=== PATIENT | female | born 1985 | race Caucasian/White ===

== ENCOUNTER 2016-10-24 16:44 | Emergency (ER) | payer MEDICAID, OTHER ==
[2016-10-24 16:56] VITALS: BP 105/61; PULSE 61; RESP 20; TEMP 98; O2SAT 98
[2016-10-24 17:29] LABS: RBC URINE 10 /hpf (0-3); URINE BACTERIA RARE (<OCC); URINE BILIRUBIN NEGATIVE (NEGATIVE); URINE BLOOD NEGATIVE (NEGATIVE); URINE COLOR Yellow (YELLOW); URINE GLUCOSE (UA) NORMAL (Normal); URINE KETONE NEGATIVE (NEGATIVE); URINE LEUKOCYTE ESTERASE TRACE Leu/uL (Negative); URINE PROTEIN NEGATIVE (NEGATIVE); URINE UROBILINOGEN NORMAL mg/dL (0.2-1.0); WBC URINE 19 /hpf (0-5)
--- NOTE | 2016-10-24 17:38 | C.PDOC ---
History Of Present Illness 31 y/o female presents to the ED for evaluation of suprapubic pressure and foul smelling urine since this morning after waking up. Also complains of itchy rash to chest and arms, state she has history of eczema and symptoms feel similar. Rash is not contagious, other family members have touched her and do not have similar lesions. Patient denies dysuria/hematuria, vaginal bleeding/discharge, pelvic pain, or fever. Time Seen by Provider: 10/24/16 16:53 Chief Complaint (Nursing): Female Genitourinary History Per: Patient History/Exam Limitations: no limitations Onset/Duration Of Symptoms: Hrs Current Symptoms Are (Timing): Still Present Severity: Mild Quality Of Discomfort: "Pain" Associated Symptoms: Urinary Symptoms (foul smelling urine). denies: Fever, Chills, Nausea, Vomiting, Diarrhea, Loss Of Appetite, Back Pain, Chest Pain, Constipation Alleviating Factors: None Additional History Per: Patient Abnormal Vaginal Bleeding: No Past Medical History Reviewed: Historical Data, Nursing Documentation, Vital Signs Vital Signs: Last Vital Signs Temp 98 F 10/24/16 16:53 Pulse 61 10/24/16 16:53 Resp 20 10/24/16 16:53 BP 105/61 10/24/16 16:53 Pulse Ox 98 10/24/16 18:41 - Medical History PMH: No Chronic Diseases - [facility] Procedures CLOSURE SKIN & SUBCUTANEOUS NEC (03/02/13) TETANUS TOXOID ADMINIST (03/02/13) Family History: States: No Known Family Hx - Social History Hx Tobacco Use: No Hx Alcohol Use: Yes Hx Substance Use: No - Immunization History Hx Tetanus Toxoid Vaccination: Yes (03/02/2013) Hx Influenza Vaccination: No Hx Pneumococcal Vaccination: No Review Of Systems Except As Marked, All Systems Reviewed And Found Negative. Constitutional: Negative for: Fever, Chills Respiratory: Negative for: Shortness of Breath Gastrointestinal: Positive for: Abdominal Pain (suprapubic pressure). Negative for: Nausea, Vomiting, Diarrhea Genitourinary: Positive for: Other (foul smelling urine). Negative for: Dysuria , Hematuria, Vaginal Discharge, Vaginal Bleeding Musculoskeletal: Negative for: Back Pain Skin: Positive for: Rash (rash to chest and arms) Physical Exam - Physical Exam Appears: Well, Non-toxic, No Acute Distress Skin: Warm, Dry, Rash (scattered dry scaly rash with some coin shaped patches on the chest and arms, non-vesicular) Head: Normacephalic Eye(s): bilateral: Normal Inspection Neck: Supple Cardiovascular: Rhythm Regular Respiratory: Normal Breath Sounds, No Rales, No Rhonchi, No Wheezing Gastrointestinal/Abdominal: Normal Exam, Bowel Sounds, Soft, No Tenderness Back: Normal Inspection, No CVA Tenderness Neurological/Psych: Oriented x3 ED Course And Treatment O2 Sat by Pulse Oximetry: 98 (RA) Pulse Ox Interpretation: Normal Progress Note: Urinalysis, Upreg ordered and reviewed. Patient given PO Prednisone and Claritin in ED (suspect nummular eczema). UA shows mild UTI, PO Ciprofloxacin given. Ucx ordered and pending. Rxs given for Prednisone, Claritin, Ciprofloxacin and eczema cream, and patient instructed to follow up with PMD/clinic in 1-2 days. She understands she should return to ED if symptoms worsen. Reevaluation Time: 17:35 Reassessment Condition: Improved Disposition Counseled Patient/Family Regarding: Studies Performed, Diagnosis, Need For Followup, Rx Given - Disposition Referrals: [facility] [Outside] Disposition: HOME/ ROUTINE Disposition Time: 17:35 Condition: STABLE Additional Instructions: FOLLOW UP WITH YOUR DOCTOR IN 1-2 DAYS USE MEDICATIONS DIRECTED RETURN TO ER IF SYMPTOMS WORSEN Prescriptions: Ciprofloxacin [Cipro] 1 tab PO BID #14 tab Colloidal Oatmeal [Eczema] 1 appl TP TID #1 lotion Loratadine [Claritin] 10 mg PO DAILY PRN #15 tab PRN Reason: itching/allergies predniSONE [predniSONE Tab] 40 mg PO DAILY #6 tab Instructions: Urinary Tract Infection in Women (ED), Eczema in Children (ED) Forms: [employer] (Khmer) Print Language: TELUGU - POA Present On Arrival: None - Clinical Impression Clinical Impression: Nummular eczema, UTI (urinary tract infection) - Scribe Statement The provider has reviewed the documentation as recorded by the Luisaibradha Howe All medical record entries made by the Scribe were at my direction and personally dictated by me. I have reviewed the chart and agree that the record accurately reflects my personal performance of the history, physical exam, medical decision making, and the department course for this patient. I have also personally directed, reviewed, and agree with the discharge instructions and disposition.
== END 2016-10-24 17:49 | disposition home or self-care (01) ==
LOC: C.ER 16:44
DX: N39.0 Urinary tract infection, site not specified (principal); L30.0 Nummular dermatitis

== ENCOUNTER 2017-11-08 15:49 | Emergency (ER) | payer MEDICAID, OTHER ==
[2017-11-08 16:06] VITALS: BP 113/70; PULSE 70; RESP 18; TEMP 98.2; O2SAT 99
--- NOTE | 2017-11-08 18:20 | C.PDOC ---
History Of Present Illness 32 year old female patient presents to the ER with c/o right knee pain for x2 days. Patient states she developed it after "partying the past weekend". Patient denies recent trauma, weakness, decreased ROM. Chief Complaint (Nursing): Lower Extremity Problem/Injury History Per: Patient History/Exam Limitations: no limitations Onset/Duration Of Symptoms: Days (x2 ) Current Symptoms Are (Timing): Still Present Past Medical History Reviewed: Historical Data, Nursing Documentation, Vital Signs Vital Signs: Last Vital Signs Temp 98.2 F 11/08/17 16:04 Pulse 70 11/08/17 16:04 Resp 18 11/08/17 16:04 BP 113/70 11/08/17 16:04 Pulse Ox 99 11/08/17 18:58 - [facility] Procedures CLOSURE SKIN & SUBCUTANEOUS NEC (03/02/13) TETANUS TOXOID ADMINIST (03/02/13) Family History: States: Unknown Family Hx - Social History Hx Tobacco Use: No Hx Alcohol Use: Yes Hx Substance Use: No - Immunization History Hx Tetanus Toxoid Vaccination: Yes (03/02/2013) Hx Influenza Vaccination: No Hx Pneumococcal Vaccination: No Review Of Systems Except As Marked, All Systems Reviewed And Found Negative. Constitutional: Negative for: Weakness, Other (trauma on knee; decrease ROM) Musculoskeletal: Positive for: Leg Pain (knee) Physical Exam - Physical Exam Appears: Well, Non-toxic, No Acute Distress Skin: Normal Color, Warm, Dry Head: Atraumatic, Normacephalic Oral Mucosa: Moist Neck: Normal ROM, Supple Chest: Symmetrical, No Deformity Cardiovascular: Rhythm Regular Respiratory: Normal Breath Sounds Extremity: Normal ROM (x4), Tenderness (right infrapatellar tenderness), No Calf Tenderness, Capillary Refill (<2 sec), No Deformity, No Swelling Pulses: Left Dorsalis Pedis: Normal, Right Dorsalis Pedis: Normal Neurological/Psych: Oriented x3, Normal Speech, Normal Motor, Normal Sensation, Normal Reflexes Gait: Steady ED Course And Treatment O2 Sat by Pulse Oximetry: 99 (RA) Pulse Ox Interpretation: Normal - Other Rad Right knee XR X-Ray: Interpreted by Me, Viewed By Me Interpretation: No fracture. No dislocation Medical Decision Making Medical Decision Making: Impression: right knee pain Plans: -- Knee XR Reassess: Patient is resting comfortably. NAD. Patient is advised to f/u with PCP in 1-2 days. Disposition - Disposition Referrals: [facility] Arias, [Non-Staff] - Disposition: HOME/ ROUTINE Disposition Time: 18:30 Condition: GOOD Additional Instructions: CHIOMA ADRIAN, thank you for letting us take care of you today. Your provider was Matthew Aviles DO and you were treated for RT KNEE SWOLLEN/PAIN. The emergency medical care you received today was directed at your acute symptoms. If you were prescribed any medication, please fill it and take as directed. It may take several days for your symptoms to resolve. Return to the Emergency Department if your symptoms worsen, do not improve, or if you have any other problems. Please contact your doctor or call one of the physicians/clinics you have been referred to that are listed on the Patient Visit Information form that is included in your discharge packet. Bring any paperwork you were given at discharge with you along with any medications you are taking to your follow up visit. Our treatment cannot replace ongoing medical care by a primary care provider outside of the emergency department. Thank you for allowing the [facility] team to be part of your care today. Follow up with your primary care doctor in 5-7 days if you have any concerns. Prescriptions: Ibuprofen [Motrin] 600 mg PO Q6 PRN #20 tab PRN Reason: Pain, Moderate (4-7) Instructions: Knee Sprain (DC) Forms: [employer] (Hebrew) - Clinical Impression Clinical Impression: Knee sprain - Scribe Statement The provider has reviewed the documentation as recorded by the Rivera Arndt Do Provider Attestation: All medical record entries made by the Scribe were at my direction and personally dictated by me. I have reviewed the chart and agree that the record accurately reflects my personal performance of the history, physical exam, medical decision making, and the department course for this patient. I have also personally directed, reviewed, and agree with the discharge instructions and disposition.
--- NOTE | 2017-11-09 08:57 | RAD ---
Date of service: 11/08/2017 PROCEDURE: Right Knee Radiographs. HISTORY: r/o fx COMPARISON: None. FINDINGS: BONES: No fracture JOINTS: No significant appearing osteoarthrosis JOINT EFFUSION: None. OTHER FINDINGS: 2 mm calcific or ossific density projects anterior pre tibial soft tissues - nonspecific IMPRESSION: No fracture or dislocation. No joint effusion
== END 2017-11-08 18:33 | disposition home or self-care (01) ==
LOC: C.ER 15:49
DX: S83.91XA Sprain of unspecified site of right knee, initial encounter (principal); X58.XXXA Exposure to other specified factors, initial encounter